=== PATIENT | male | born 1965 | race Two or more races ===

== ENCOUNTER → 2019-06-18 | Outpatient (CLI) | payer OTHER ==
[~2019-06-18] MED LIST: AMLO5TAB15 PO; ATEN-60 PO
[2019-06-18 09:32] LABS: Hematocrit 21.1 % (41.0-53.0); Mean Corpuscular Hemoglobin 15.1 pg (28.0-32.0); Mean Corpuscular Hgb Conc. 26.1 g/dL (32.0-36.0); Platelet Count (auto) 286 10^3/uL (140-450); Red Blood Cells 3.64 10^6/uL (4.5-5.90); White Blood Cell 4.3 10^3/uL (4.4-10.8)
[2019-06-18 09:56] LABS: Red Cell Distribution Width 24.9 % (11.8-14.3)
[2019-06-18 09:57] LABS: Basophils % (manual) 0 (0.0-2.0); Blast Cells 0; Metamyelocytes % 0; Myelocytes % 0; Promyelocytes % 0; Reactive Lymphocytes 0
[2019-06-18 10:09] LABS: Albumin 3.5 g/dL (3.4-5.0); Calcium 8.1 mg/dL (8.5-10.1)
[2019-06-18 10:15] LABS: BUN/Creatinine Ratio 13.6; Bilirubin, Total 0.6 mg/dL (0.2-1.0); Total Protein 7.3 g/dL (6.4-8.2)
[2019-06-18 11:03] LABS: Band Neutrophils % (manual) 2; Eosinophils % (manual) 2 (0-7); Lymphocytes % (manual) 23 (10.0-50.0); Monocytes % (manual) 6 (0-12)
[2019-06-19 08:12] LABS: Hemoglobin 5.5 g/dL (13.5-17.5)
== END | disposition home or self-care (01) ==
LOC: LAB 09:10
PROVIDERS: ATTEND Internal Medicine
DX: Z12.5 Encounter for screening for malignant neoplasm of prostate (principal); I10 Essential (primary) hypertension; R07.89 Other chest pain; K51.011 Ulcerative (chronic) pancolitis with rectal bleeding; D50.0 Iron deficiency anemia secondary to blood loss (chronic); Z83.3 Family history of diabetes mellitus
CPT/HCPCS: 36415; 80053; 80061; 82274; 83036; 84153; 84443; 85007; 85027; 85652

== ENCOUNTER 2019-06-19 11:24 | Inpatient (IN) | payer OTHER ==
[~2019-06-19] VITALS: Ht 177.8 cm; Wt 64.5 kg
[2019-06-19] VITALS (10 sets, daily range): BP systolic 113–127; BP diastolic 53–68
[2019-06-19 12:00] LABS: Mean Corpuscular Hgb Conc. 26.6 g/dL (32.0-36.0); Mean Corpuscular Volume 57.7 fL (80.0-100.0); Platelet Count (auto) 329 10^3/uL (140-450)
[2019-06-19 12:03] LABS: Basophils # (auto) 0 uL; Basophils % (auto) 0.9 % (0.0-2.0); Eosinophils # (auto) 0.1 uL; Eosinophils % (auto) 1.2 % (0.0-7.0); Hematocrit 21.6 % (41.0-53.0); Lymphocytes # (auto) 2.5 uL; Mean Corpuscular Hemoglobin 15.3 pg (28.0-32.0); Monocytes # (auto) 0.3 uL; Monocytes % (auto) 5.9 % (0.0-12.0); Neutrophils # (auto) 1.5 uL; Nucleated Red Blood Cells % 0.7 %; Red Blood Cells 3.74 10^6/uL (4.5-5.90); White Blood Cell 4.4 10^3/uL (4.4-10.8)
[2019-06-19 12:14] LABS: Albumin 3.7 g/dL (3.4-5.0); Calcium 8.5 mg/dL (8.5-10.1)
[2019-06-19 12:17] LABS: BUN/Creatinine Ratio 13.6; Bilirubin, Total 0.6 mg/dL (0.2-1.0); Total Protein 7.6 g/dL (6.4-8.2)
[2019-06-19 12:20] LABS: Hemoglobin 5.7 g/dL (13.5-17.5); Red Cell Distribution Width 24.9 % (11.8-14.3)
[2019-06-19] MEDS ORDERED: PANTOPRAZOLE 40 MG/10 ML VIAL INJ IV ONE (13:15)
[2019-06-19 14:26] LABS: INR 1.07 (0.9-1.15); Partial Thromboplastin Time 23.5 sec (23.64-32.05)
[2019-06-19] MEDS ORDERED: MORPHINE SULF INJ 2 MG/ML SYRINGE 1ML IV PRN (15:00)
[2019-06-19] MEDS ORDERED: PROMETHAZINE HCL 25 MG/ML 1ML IV PRN (15:00)
[2019-06-19] MEDS ORDERED: traMADol HCL 50 MG TAB PO PRN (15:00)
[2019-06-19] MEDS ORDERED: LACTULOSE 20Gm/30ML SOLN PO PRN (15:00)
[2019-06-19] MEDS ORDERED: ACETAMINOPHEN 500 MG TAB PO PRN (15:00)
[2019-06-19] MEDS ORDERED: TEMAZEPAM 15 MG CAP PO PRN (15:00)
[2019-06-19] MEDS ORDERED: NITROGLYCERIN 0.4 MG SL TAB SL PRN (15:00)
[2019-06-19] MEDS ORDERED: HYDROCORTISONE SOD SUCC 100 MG/2ML INJ VIAL IV ONE (16:00)
[2019-06-19] MEDS: SODIUM CHLORIDE 0.9% 1,000 ML IV SCH ×2 (18:39→23:21)
[2019-06-19 19:13] LABS: Urine Bacteria NONE SEEN /hpf (None Seen); Urine Blood Negative /uL (Negative); Urine Mucus FEW (None Seen); Urine Specific Gravity 1.016 (1.001-1.035); Urine WBC <1 /hpf (0 - 3)
[2019-06-19] MEDS ORDERED: ATEN-60 PO (23:19)
[2019-06-19] MEDS ORDERED: AMLO5TAB15 PO (23:19)
[2019-06-19] MEDS: HYDROCORTISONE SOD SUCC 100 MG/2ML INJ VIAL IV SCH (23:21)
[2019-06-19] MEDS: PANTOPRAZOLE 40 MG TAB PO SCH (23:21)
[2019-06-20] VITALS: BP 108/59
[2019-06-20 01:11] LABS: Hemoglobin 7.5 g/dL (13.5-17.5)
[2019-06-20 04:00] VITALS: BP 106/57
[2019-06-20 05:42] LABS: Basophils # (auto) 0 uL; Eosinophils # (auto) 0 uL; Lymphocytes # (auto) 0.5 uL; Mean Corpuscular Hemoglobin 18.2 pg (28.0-32.0); Monocytes # (auto) 0.2 uL; White Blood Cell 4.5 10^3/uL (4.4-10.8)
[2019-06-20 05:49] LABS: Basophils % (auto) 0.4 % (0.0-2.0); Hematocrit 24.7 % (41.0-53.0); Hemoglobin 7.2 g/dL (13.5-17.5); Lymphocytes % (auto) 11.7 % (10.0-50.0); Mean Corpuscular Hgb Conc. 29.2 g/dL (32.0-36.0); Mean Corpuscular Volume 62.2 fL (80.0-100.0); Neutrophils # (auto) 3.8 uL; Neutrophils % (auto) 82.9 % (37.0-80.0); Platelet Count (auto) 271 10^3/uL (140-450); Red Blood Cells 3.97 10^6/uL (4.5-5.90)
[2019-06-20 05:55] LABS: Red Cell Distribution Width 28.7 % (11.8-14.3)
[2019-06-20] MEDS: SODIUM CHLORIDE 0.9% 1,000 ML IV SCH ×3 (06:33→22:47)
[2019-06-20 07:40] VITALS: BP 123/64
[2019-06-20] MEDS: HYDROCORTISONE SOD SUCC 100 MG/2ML INJ VIAL IV SCH ×2 (09:48→21:41)
[2019-06-20] MEDS: PANTOPRAZOLE 40 MG TAB PO SCH ×2 (09:48→21:42)
[2019-06-20 11:50] VITALS: BP 126/63
[2019-06-20 16:47] VITALS: BP 131/63
[2019-06-20 22:00] VITALS: BP 130/63
[2019-06-21] VITALS (10 sets, daily range): BP systolic 116–149; BP diastolic 62–83
[2019-06-21 05:14] LABS: Basophils # (auto) 0 uL; Basophils % (auto) 0.3 % (0.0-2.0); Eosinophils # (auto) 0 uL; Hematocrit 23.2 % (41.0-53.0); Lymphocytes # (auto) 2.6 uL; Lymphocytes % (auto) 46.7 % (10.0-50.0); Monocytes # (auto) 0.3 uL; Neutrophils # (auto) 2.6 uL; Nucleated Red Blood Cells % 0.2 %; Platelet Count (auto) 272 10^3/uL (140-450); Red Blood Cells 3.75 10^6/uL (4.5-5.90); White Blood Cell 5.5 10^3/uL (4.4-10.8)
[2019-06-21 05:16] LABS: Hemoglobin 6.7 g/dL (13.5-17.5)
[2019-06-21] MEDS: SODIUM CHLORIDE 0.9% 1,000 ML IV SCH ×3 (07:07→22:47)
[2019-06-21] MEDS: PANTOPRAZOLE 40 MG TAB PO SCH ×2 (10:57→21:25)
[2019-06-21] MEDS: HYDROCORTISONE SOD SUCC 100 MG/2ML INJ VIAL IV SCH ×2 (10:57→21:27)
[2019-06-21] MEDS ORDERED: GOLYTELY 4L KIT PO ONE (12:00)
[2019-06-22] MEDS ORDERED: GOLYTELY 4L KIT PO ONE (04:00)
[2019-06-22] MEDS: SODIUM CHLORIDE 0.9% 1,000 ML IV SCH ×3 (04:16→22:47)
[2019-06-22 05:00] VITALS: BP 133/75
[2019-06-22 08:07] LABS: Eosinophils # (auto) 0 10 ^3/uL (0-0.8); Hemoglobin 8.7 g/dL (13.5-17.5); Mean Corpuscular Hgb Conc. 30.2 g/dL (32.0-36.0); Monocytes # (auto) 0.4 10 ^3/uL (0-1.3)
[2019-06-22 08:09] LABS: Basophils # (auto) 0.1 10 ^3/uL (0-0.2); Eosinophils % (auto) 0.2 % (0.0-7.0); Hematocrit 28.7 % (41.0-53.0); Lymphocytes # (auto) 2.8 10 ^3/uL (0.4-5.4); Lymphocytes % (auto) 49.2 % (10.0-50.0); Mean Corpuscular Volume 66.4 fL (80.0-100.0); Monocytes % (auto) 6.4 % (0.0-12.0); Neutrophils # (auto) 2.5 10 ^3/uL (1.6-8.6); Neutrophils % (auto) 43.2 % (37.0-80.0); Nucleated Red Blood Cells % 0.2 %; Platelet Count (auto) 270 10^3/uL (140-450); Red Blood Cells 4.33 10^6/uL (4.5-5.90); White Blood Cell 5.7 10^3/uL (4.4-10.8)
[2019-06-22] MEDS ORDERED: diphenhdrAMINE HCL 50 MG/1 ML VL ONE (08:13)
[2019-06-22] MEDS ORDERED: SODIUM CHLORIDE LOCK 10 ML ONE (08:13)
[2019-06-22] MEDS ORDERED: LIDOCAINE VISCOUS 2% 15ML UD ONE (08:13)
[2019-06-22 08:19] LABS: Red Cell Distribution Width 32.6 % (11.8-14.3)
[2019-06-22 08:22] LABS: INR 1.17 (0.9-1.15); Partial Thromboplastin Time 28.3 sec (23.64-32.05)
[2019-06-22 08:26] LABS: Potassium 3.5 mmol/L (3.5-5.1)
[2019-06-22 08:33] LABS: Albumin 3.1 g/dL (3.4-5.0); BUN/Creatinine Ratio 10.5; Bilirubin, Total 0.8 mg/dL (0.2-1.0); Calcium 8.3 mg/dL (8.5-10.1); Total Protein 6.6 g/dL (6.4-8.2)
[2019-06-22 09:00] VITALS: BP 124/69
[2019-06-22] MEDS: PANTOPRAZOLE 40 MG TAB PO SCH (10:00)
[2019-06-22] MEDS: HYDROCORTISONE SOD SUCC 100 MG/2ML INJ VIAL IV SCH (11:07)
[2019-06-22] MEDS: fentaNYL CITRATE 100 MCG/2 ML VL ONE ×4 (12:23→12:34)
[2019-06-22] MEDS: MIDAZOLAM HCL 5 MG/ML-1ML VIAL ONE ×4 (12:23→12:34)
[2019-06-22 13:00] VITALS: BP 136/62
[2019-06-22 17:00] VITALS: BP 114/51
[2019-06-22] MEDS ORDERED: HYDROCORTISONE ACET 25 MG RECTAL SUPP PR SCH (18:00)
[2019-06-22 22:00] VITALS: BP 121/57
[2019-06-23 05:00] VITALS: BP 130/72
[2019-06-23] MEDS: SODIUM CHLORIDE 0.9% 1,000 ML IV SCH (06:47)
[2019-06-23 07:00] LABS: Basophils # (auto) 0 10 ^3/uL (0-0.2); Eosinophils # (auto) 0.1 10 ^3/uL (0-0.8); Hemoglobin 8.1 g/dL (13.5-17.5); Mean Corpuscular Volume 65.9 fL (80.0-100.0); Monocytes # (auto) 0.3 10 ^3/uL (0-1.3); Neutrophils # (auto) 1.9 10 ^3/uL (1.6-8.6); Red Blood Cells 4.17 10^6/uL (4.5-5.90); White Blood Cell 4.6 10^3/uL (4.4-10.8)
[2019-06-23 07:03] LABS: Basophils % (auto) 0.6 % (0.0-2.0); Eosinophils % (auto) 1.2 % (0.0-7.0); Hematocrit 27.4 % (41.0-53.0); Lymphocytes # (auto) 2.3 10 ^3/uL (0.4-5.4); Mean Corpuscular Hemoglobin 19.5 pg (28.0-32.0); Mean Corpuscular Hgb Conc. 29.6 g/dL (32.0-36.0); Monocytes % (auto) 7.5 % (0.0-12.0); Neutrophils % (auto) 40.7 % (37.0-80.0); Nucleated Red Blood Cells % 0.1 %; Platelet Count (auto) 233 10^3/uL (140-450)
[2019-06-23 09:00] VITALS: BP 130/71
[2019-06-23] MEDS ORDERED: PANTOPRAZOLE 40 MG TAB PO SCH (10:00)
== END 2019-06-23 12:00 | disposition home or self-care (01) | DRG 812 ==
LOC: ER 11:24 → TELE 11:25 → DOU IN ICU 22:30 → TELE-CENTR 06-20 14:14
PROVIDERS: ADMIT Internal Medicine; ATTEND Family Medicine
PROC: 30233N1 Transfusion of Nonautologous Red Blood Cells into Peripheral Vein, Percutaneous Approach (ICD-10-PCS; principal; 2019-06-19)
PROC: 0DBB8ZX Excision of Ileum, Via Natural or Artificial Opening Endoscopic, Diagnostic (ICD-10-PCS; 2019-06-22)
PROC: 0DBL8ZZ Excision of Transverse Colon, Via Natural or Artificial Opening Endoscopic (ICD-10-PCS; 2019-06-22)
PROC: 0DBE8ZX Excision of Large Intestine, Via Natural or Artificial Opening Endoscopic, Diagnostic (ICD-10-PCS; 2019-06-22)
PROC: 0DB68ZX Excision of Stomach, Via Natural or Artificial Opening Endoscopic, Diagnostic (ICD-10-PCS; 2019-06-22 12:21)
DX: D62 Acute posthemorrhagic anemia (principal); K92.2 Gastrointestinal hemorrhage, unspecified; K51.90 Ulcerative colitis, unspecified, without complications; K64.8 Other hemorrhoids; I10 Essential (primary) hypertension; R73.9 Hyperglycemia, unspecified; K63.5 Polyp of colon; Z83.3 Family history of diabetes mellitus
CPT/HCPCS: 36415; 36430; 43239; 45380; 71045; 80053; 81001; 82378; 83735; 85014; 85018; 85025; 85045; 85610; 85652; 85730; 86141; 86850; 86900; 86901; 86920; 93005; 96374; 96375; C9113; G0378; J2250

== ENCOUNTER → 2019-07-16 | Outpatient (CLI) | payer OTHER ==
[2019-07-16 12:09] LABS: Basophils # (auto) 0.1 10 ^3/uL (0-0.2); Eosinophils # (auto) 0.3 10 ^3/uL (0-0.8); Mean Corpuscular Hgb Conc. 30.5 g/dL (32.0-36.0); Neutrophils # (auto) 3.2 10 ^3/uL (1.6-8.6); Platelet Count (auto) 257 10^3/uL (140-450)
[2019-07-16 12:11] LABS: Basophils % (auto) 2.2 % (0.0-2.0); Hematocrit 35.3 % (41.0-53.0); Hemoglobin 10.7 g/dL (13.5-17.5); Lymphocytes % (auto) 20.1 % (10.0-50.0); Mean Corpuscular Hemoglobin 22.4 pg (28.0-32.0); Mean Corpuscular Volume 73.5 fL (80.0-100.0); Monocytes # (auto) 0.3 10 ^3/uL (0-1.3); Monocytes % (auto) 6.6 % (0.0-12.0); Neutrophils % (auto) 65.1 % (37.0-80.0); Red Cell Distribution Width 32.8 % (11.8-14.3)
[2019-07-16 12:45] LABS: Ferritin 15.4 ng/mL (10-322)
[2019-07-16 12:46] LABS: Folate (Folic Acid) 11.19 ng/mL (5.38-24)
== END | disposition home or self-care (01) ==
LOC: LAB 11:44
PROVIDERS: ATTEND Internal Medicine
DX: D50.0 Iron deficiency anemia secondary to blood loss (chronic) (principal)
CPT/HCPCS: 36415; 82607; 82728; 82746; 83540; 85025

== ENCOUNTER → 2019-11-12 | Outpatient (CLI) | payer OTHER ==
[2019-11-12 17:37] LABS: Basophils # (auto) 0.1 10 ^3/uL (0-0.2); Basophils % (auto) 1.2 % (0.0-2.0); Eosinophils # (auto) 0.2 10 ^3/uL (0-0.8); Eosinophils % (auto) 3.4 % (0.0-7.0); Hematocrit 38.7 % (41.0-53.0); Hemoglobin 12.9 g/dL (13.5-17.5); Lymphocytes # (auto) 1.2 10 ^3/uL (0.4-5.4); Mean Corpuscular Hemoglobin 29.5 pg (28.0-32.0); Mean Corpuscular Hgb Conc. 33.3 g/dL (32.0-36.0); Mean Corpuscular Volume 88.7 fL (80.0-100.0); Monocytes # (auto) 0.6 10 ^3/uL (0-1.3); Monocytes % (auto) 9.1 % (0.0-12.0); Neutrophils # (auto) 4.2 10 ^3/uL (1.6-8.6); Neutrophils % (auto) 67.3 % (37.0-80.0); Nucleated Red Blood Cells % 0.1 %; Platelet Count (auto) 232 10^3/uL (140-450); Red Blood Cells 4.36 10^6/uL (4.5-5.90); Red Cell Distribution Width 15.6 % (11.8-14.3); White Blood Cell 6.2 10^3/uL (4.4-10.8)
[2019-11-12 17:53] LABS: Albumin 3.9 g/dL (3.4-5.0); Calcium 8.2 mg/dL (8.5-10.1); Potassium 3.7 mmol/L (3.5-5.1)
[2019-11-12 17:57] LABS: BUN/Creatinine Ratio 14.1; Bilirubin, Total 0.4 mg/dL (0.2-1.0); Total Protein 7.9 g/dL (6.4-8.2)
[2019-11-12 18:07] LABS: Ferritin 26.1 ng/mL (10-322); Folate (Folic Acid) 13.4 ng/mL (5.38-24)
== END | disposition home or self-care (01) ==
LOC: LAB 16:53
PROVIDERS: ATTEND Internal Medicine
DX: D50.0 Iron deficiency anemia secondary to blood loss (chronic) (principal); I10 Essential (primary) hypertension; K64.8 Other hemorrhoids; M17.9 Osteoarthritis of knee, unspecified
CPT/HCPCS: 36415; 80053; 82607; 82728; 82746; 83540; 85025

== ENCOUNTER → 2019-12-16 | Outpatient (CLI) | payer OTHER | END | disposition home or self-care (01) | LOC: LAB 16:37 | PROVIDERS: ATTEND Internal Medicine | DX: I10 Essential (primary) hypertension (principal); D64.9 Anemia, unspecified; D50.0 Iron deficiency anemia secondary to blood loss (chronic); R73.01 Impaired fasting glucose | CPT/HCPCS: 36415; 83036 ==

== ENCOUNTER → 2021-07-06 | Outpatient (CLI) | payer OTHER ==
[~2021-07-06] MED LIST changes: +AMLO-489 PO; -AMLO5TAB15 PO; +GELATIN 1 SPONGE SIZE 50 TOP ONE; +LIDOCAINE 2%HCL (LOCAL ANESTH.) INJ 10ml MDV ONE; +MIDAZOLAM HCL 2MG/2ML 2ml VIAL (1mg/ml) IV ONE; +MIDAZOLAM HCL 2MG/2ML 2ml VIAL (1mg/ml) ONE; +fentaNYL CITRATE 100 MCG/2 ML VL IV ONE; +fentaNYL CITRATE 100 MCG/2 ML VL ONE
[2021-07-06 09:43] VITALS: BP 115/80
== END | disposition home or self-care (01) ==
LOC: XYW 08:31
PROVIDERS: ATTEND Internal Medicine Gastroenterology
DX: R74.01 Elevation of levels of liver transaminase levels (principal); K73.1 Chronic lobular hepatitis, not elsewhere classified; K76.0 Fatty (change of) liver, not elsewhere classified; Z82.49 Family history of ischemic heart disease and other diseases of the circulatory system; Z83.3 Family history of diabetes mellitus; Z80.8 Family history of malignant neoplasm of other organs or systems; Z82.69 Family history of other diseases of the musculoskeletal system and connective tissue
CPT/HCPCS: 47000; 71045; 74150; 77012; 88305; J2001; J2250; J3010; 10005

== ENCOUNTER 2022-02-16 10:24 | Inpatient (IN) | payer OTHER ==
[~2022-02-16] VITALS: Ht 167.6 cm; Wt 86.6 kg
[~2022-02-16 10:24] MED LIST changes: -GELATIN 1 SPONGE SIZE 50 TOP ONE; -LIDOCAINE 2%HCL (LOCAL ANESTH.) INJ 10ml MDV ONE; -MIDAZOLAM HCL 2MG/2ML 2ml VIAL (1mg/ml) IV ONE; -MIDAZOLAM HCL 2MG/2ML 2ml VIAL (1mg/ml) ONE; -fentaNYL CITRATE 100 MCG/2 ML VL IV ONE; -fentaNYL CITRATE 100 MCG/2 ML VL ONE
[2022-02-16 12:18] LABS: Basophils # (auto) 0.1 10 ^3/uL (0-0.2); Eosinophils # (auto) 0.1 10 ^3/uL (0-0.8); Eosinophils % (auto) 1.6 % (0.0-7.0); Monocytes # (auto) 0.5 10 ^3/uL (0-1.3); Nucleated Red Blood Cells % 0.3 %
[2022-02-16 12:21] LABS: Hematocrit 24.1 % (41.0-53.0); Lymphocytes % (auto) 18.4 % (10.0-50.0); Mean Corpuscular Hemoglobin 16.7 pg (28.0-32.0); Mean Corpuscular Hgb Conc. 28.8 g/dL (32.0-36.0); Mean Corpuscular Volume 57.9 fL (80.0-100.0); Monocytes % (auto) 8.4 % (0.0-12.0); Neutrophils # (auto) 3.9 10 ^3/uL (1.6-8.6); Neutrophils % (auto) 69.6 % (37.0-80.0); Red Blood Cells 4.16 10^6/uL (4.5-5.90); Red Cell Distribution Width 19.8 % (11.8-14.3); White Blood Cell 5.6 10^3/uL (4.4-10.8)
[2022-02-16 12:28] LABS: Hemoglobin 6.9 g/dL (13.5-17.5)
[2022-02-16 12:30] LABS: INR 1.02 (0.9-1.15); Partial Thromboplastin Time 25.1 sec (24.6-33.4)
[2022-02-16 12:32] LABS: Albumin 3.6 g/dL (3.4-5.0); BUN/Creatinine Ratio 12.9; Potassium 3.5 mmol/L (3.5-5.1)
[2022-02-16 12:36] LABS: Bilirubin, Total 0.4 mg/dL (0.2-1.0); Total Protein 6.6 g/dL (6.4-8.2)
[2022-02-16] MEDS ORDERED: ACETAMINOPHEN 325 MG TAB PO PRN (14:45)
[2022-02-16] MEDS ORDERED: ONDANSETRON HCL 4 MG/2 ML VIAL IV PRN (14:45)
[2022-02-16] MEDS ORDERED: PANTOPRAZOLE 40 MG/10 ML VIAL INJ IV ONE (14:45)
[2022-02-16] MEDS ORDERED: MORPHINE SULFATE INJ 2 MG/ml SYRG IV PRN (14:45)
[2022-02-16] MEDS ORDERED: NITROGLYCERIN 0.4 MG SL TAB SL PRN (14:45)
[2022-02-16 15:39] LABS: Cholesterol 108 mg/dL (< 200)
[2022-02-16 15:41] LABS: HDL Cholesterol 41 mg/dL (40-59); LDL Cholesterol 67 mg/dL (< 100); Triglycerides 60 mg/dL (< 150)
[2022-02-16 15:59] LABS: % Iron Saturation 1.6 % (20-55)
[2022-02-16] MEDS: SODIUM CHLORIDE 0.9% 1,000 ML IV SCH (16:33)
[2022-02-16 17:28] VITALS: BP 115/61
[2022-02-16 17:43] VITALS: BP 118/62
[2022-02-16 19:09] VITALS: BP 122/67
[2022-02-16 21:57] LABS: Hemoglobin 7.8 g/dL (13.5-17.5)
[2022-02-16 22:00] LABS: Hematocrit 26.2 % (41.0-53.0)
[2022-02-17] MEDS ORDERED: URSO1TAB8 PO (03:59)
[2022-02-17] MEDS ORDERED: OMEP20TA PO (03:59)
[2022-02-17] MEDS ORDERED: PRED1PAK8 PO (03:59)
[2022-02-17] MEDS ORDERED: MYCO500T PO (03:59)
[2022-02-17] MEDS: SODIUM CHLORIDE 0.9% 1,000 ML IV SCH ×3 (04:19→22:30)
[2022-02-17 05:00] VITALS: BP_SYST 132; BP_SYST 140; BP_DIAS 65; BP_DIAS 75
[2022-02-17 05:40] LABS: Basophils # (auto) 0.1 10 ^3/uL (0-0.2); Eosinophils # (auto) 0.1 10 ^3/uL (0-0.8); Hemoglobin 7.8 g/dL (13.5-17.5); Lymphocytes # (auto) 1.1 10 ^3/uL (0.4-5.4); Monocytes # (auto) 0.4 10 ^3/uL (0-1.3)
[2022-02-17 05:42] LABS: Basophils % (auto) 1.3 % (0.0-2.0); Eosinophils % (auto) 1.2 % (0.0-7.0); Lymphocytes % (auto) 16.9 % (10.0-50.0); Mean Corpuscular Hemoglobin 18.2 pg (28.0-32.0); Mean Corpuscular Volume 60.6 fL (80.0-100.0); Monocytes % (auto) 6.6 % (0.0-12.0); Nucleated Red Blood Cells % 0.1 %; Red Blood Cells 4.29 10^6/uL (4.5-5.90); White Blood Cell 6.7 10^3/uL (4.4-10.8)
[2022-02-17 06:05] LABS: Albumin 3.1 g/dL (3.4-5.0); Calcium 7.6 mg/dL (8.5-10.1); Potassium 3.2 mmol/L (3.5-5.1)
[2022-02-17 06:06] LABS: BUN/Creatinine Ratio 12.2
[2022-02-17 06:09] LABS: Bilirubin, Total 0.6 mg/dL (0.2-1.0)
[2022-02-17 08:30] VITALS: BP 117/69
[2022-02-17] MEDS ORDERED: [UNRECOGNIZED DRUG - CODE] PO (08:42)
[2022-02-17 09:00] VITALS: BP 117/69
[2022-02-17] MEDS ORDERED: HYDR200T36 PO (09:11)
[2022-02-17] MEDS: PANTOPRAZOLE 40 MG/10 ML VIAL INJ IV SCH (10:30)
[2022-02-17] MEDS ORDERED: POTASSIUM EFFERVESENT TAB 25 MEQ GT ONE (11:30)
[2022-02-17 13:00] VITALS: BP 119/61
[2022-02-17 14:00] LABS: Hematocrit 26.2 % (41.0-53.0); Hemoglobin 7.8 g/dL (13.5-17.5)
[2022-02-17 17:00] VITALS: BP 117/69
[2022-02-17 21:33] LABS: Urine Bacteria FEW /hpf (None Seen); Urine Blood Negative /uL (Negative); Urine Mucus FEW (None Seen); Urine Specific Gravity 1.021 (1.001-1.035); Urine WBC 1 /hpf (0 - 3)
[2022-02-17 22:00] VITALS: BP_SYST 116; BP_SYST 123; BP_SYST 134; BP_DIAS 63; BP_DIAS 64; BP_DIAS 67
[2022-02-17] MEDS ORDERED: URSODIOL 500 MG PO SCH (22:00)
[2022-02-17 22:04] LABS: Hematocrit 25.8 % (41.0-53.0); Hemoglobin 7.8 g/dL (13.5-17.5)
[2022-02-18 05:00] VITALS: BP 119/64
[2022-02-18] MEDS: SODIUM CHLORIDE 0.9% 1,000 ML IV SCH ×2 (06:34→17:30)
[2022-02-18 06:46] LABS: Basophils # (auto) 0.1 10 ^3/uL (0-0.2); Eosinophils # (auto) 0.1 10 ^3/uL (0-0.8); Eosinophils % (auto) 2.2 % (0.0-7.0); Hemoglobin 8.1 g/dL (13.5-17.5); Monocytes # (auto) 0.4 10 ^3/uL (0-1.3)
[2022-02-18 06:49] LABS: Hematocrit 27.1 % (41.0-53.0); Lymphocytes # (auto) 0.9 10 ^3/uL (0.4-5.4); Lymphocytes % (auto) 15.8 % (10.0-50.0); Monocytes % (auto) 7.1 % (0.0-12.0); Neutrophils # (auto) 4.4 10 ^3/uL (1.6-8.6); Neutrophils % (auto) 73.9 % (37.0-80.0); Nucleated Red Blood Cells % 0.1 %; Red Blood Cells 4.51 10^6/uL (4.5-5.90)
[2022-02-18 06:52] LABS: Red Cell Distribution Width 22.7 % (11.8-14.3)
[2022-02-18] MEDS: PANTOPRAZOLE 40 MG/10 ML VIAL INJ IV SCH (08:42)
[2022-02-18 09:00] VITALS: BP 122/68
[2022-02-18] MEDS ORDERED: GOLYTELY 4L KIT PO ONE (09:00)
[2022-02-18 13:00] VITALS: BP 127/70
[2022-02-18 17:15] VITALS: BP 133/71
[2022-02-18 22:00] VITALS: BP 110/59
[2022-02-19] MEDS: SODIUM CHLORIDE 0.9% 1,000 ML IV SCH ×2 (02:45→07:16)
[2022-02-19 05:00] VITALS: BP 119/62
[2022-02-19 05:14] LABS: Basophils # (auto) 0.1 10 ^3/uL (0-0.2); Eosinophils # (auto) 0.2 10 ^3/uL (0-0.8); Hemoglobin 7.5 g/dL (13.5-17.5); Lymphocytes # (auto) 0.8 10 ^3/uL (0.4-5.4); Monocytes # (auto) 0.5 10 ^3/uL (0-1.3); Neutrophils # (auto) 2.8 10 ^3/uL (1.6-8.6); White Blood Cell 4.3 10^3/uL (4.4-10.8)
[2022-02-19 05:18] LABS: Basophils % (auto) 1.8 % (0.0-2.0); Eosinophils % (auto) 4.1 % (0.0-7.0); Lymphocytes % (auto) 17.9 % (10.0-50.0); Mean Corpuscular Hemoglobin 18.2 pg (28.0-32.0); Mean Corpuscular Hgb Conc. 30.1 g/dL (32.0-36.0); Mean Corpuscular Volume 60.3 fL (80.0-100.0); Monocytes % (auto) 11.4 % (0.0-12.0); Neutrophils % (auto) 64.8 % (37.0-80.0); Nucleated Red Blood Cells % 0.4 %; Red Blood Cells 4.15 10^6/uL (4.5-5.90)
[2022-02-19 05:28] LABS: Red Cell Distribution Width 23.2 % (11.8-14.3)
[2022-02-19 08:46] VITALS: BP 113/65
[2022-02-19] MEDS: PANTOPRAZOLE 40 MG/10 ML VIAL INJ IV SCH (09:30)
[2022-02-19] MEDS ORDERED: SODIUM CHLORIDE LOCK 10 ML ONE ×2 (10:33→13:46)
[2022-02-19] MEDS ORDERED: diphenhdrAMINE HCL 50 MG/1 ML VL ONE (10:33)
[2022-02-19 12:42] VITALS: BP 114/69
[2022-02-19] MEDS: fentaNYL CITRATE 100 MCG/2 ML VL ONE ×3 (13:34→13:41)
[2022-02-19] MEDS: MIDAZOLAM HCL 5 MG/ML-1ML VIAL ONE ×3 (13:34→13:41)
[2022-02-19] MEDS ORDERED: fentaNYL CITRATE 100 MCG/2 ML VL ONE (13:46)
[2022-02-19] MEDS ORDERED: MIDAZOLAM HCL 5 MG/ML-1ML VIAL ONE (13:46)
[2022-02-19] MEDS ORDERED: WITCH HAZEL-GLYCERIN PAD TOP PRN (14:00)
[2022-02-19 16:55] VITALS: BP 116/66
[2022-02-19 22:00] VITALS: BP 128/69
[2022-02-20] MEDS: SODIUM CHLORIDE 0.9% 1,000 ML IV SCH ×2 (04:00→09:34)
[2022-02-20 05:00] VITALS: BP 113/62
[2022-02-20 09:00] VITALS: BP 126/69
[2022-02-20] MEDS: PANTOPRAZOLE 40 MG/10 ML VIAL INJ IV SCH (09:25)
[2022-02-20] MEDS ORDERED: TUCKS TOP (11:02)
[2022-02-20] MEDS ORDERED: FERR-7 PO (11:02)
[2022-02-20 13:00] VITALS: BP 124/70
== END 2022-02-20 15:24 | disposition home or self-care (01) | DRG 394 ==
LOC: ER 10:24 → TELE 14:45 → TELE-EAST 22:19
PROVIDERS: ADMIT Nurse Practitioner Family; ATTEND Internal Medicine
PROC: 30233N1 Transfusion of Nonautologous Red Blood Cells into Peripheral Vein, Percutaneous Approach (ICD-10-PCS; 2022-02-16)
PROC: 0DJD8ZZ Inspection of Lower Intestinal Tract, Via Natural or Artificial Opening Endoscopic (ICD-10-PCS; principal; 2022-02-19 13:28)
DX: K64.8 Other hemorrhoids (principal); I24.8 Other forms of acute ischemic heart disease; K92.2 Gastrointestinal hemorrhage, unspecified; E83.51 Hypocalcemia; I10 Essential (primary) hypertension; M34.9 Systemic sclerosis, unspecified; D50.9 Iron deficiency anemia, unspecified; K21.9 Gastro-esophageal reflux disease without esophagitis; R07.89 Other chest pain; Z20.822 Contact with and (suspected) exposure to COVID-19; R73.9 Hyperglycemia, unspecified; Z83.3 Family history of diabetes mellitus; Z82.49 Family history of ischemic heart disease and other diseases of the circulatory system
CPT/HCPCS: 36415; 45378; 71045; 74176; 80053; 80061; 81001; 83036; 83540; 83550; 84132; 84443; 84484; 85014; 85018; 85025; 85610; 85730; 86850; 86900; 86901; 86920; 87426; 93005; 93306; 96374; C9113; G0378; J2250